=== PATIENT | female | born 1975 | race Caucasian/White ===

== ENCOUNTER → 2019-07-25 | Outpatient (CLI) | payer BC ==
--- NOTE | 2019-07-25 09:59 | Diagnostic Imaging Report ---
PROCEDURE: US Thyroid. TECHNIQUE: Multiple real-time grayscale images were obtained of the thyroid in various projections. INDICATION: Left thyroid nodule There are no prior studies available for comparison. The thyroid gland is small. The right lobe measures 2.0 x 0.5 x 1.1 cm, left lower is estimated at 2.6 x 0.4 x 1.0 cm (normal gland size 4-5 x 2 x 2 cm or less. Each lobe of the thyroid is fairly homogeneous. There is no discrete solid or cystic mass within either lobe. IMPRESSION: 1. The thyroid gland is small. There is no discrete solid or cystic mass involving either lobe. 2. If further evaluation of the thyroid function is desired, then a nuclear medicine thyroid scan would be recommended. Dictated by: Dictated on workstation # [id number]
== END ==
LOC: RAD 08:49
PROVIDERS: ATTEND Otolaryngology Otolaryngology/Facial Plastic Surgery
DX: E04.1 Nontoxic single thyroid nodule (principal)
CPT/HCPCS: 76536